=== PATIENT | female | born 1965 | race Two or more races ===

== ENCOUNTER 2023-04-22 15:26 | Emergency (ER) | payer OTHER ==
[~2023-04-22] VITALS: Ht 152.4 cm; Wt 72.6 kg
[2023-04-22] MEDS ORDERED: BENICAR40 MG (15:50)
[2023-04-22 16:39] LABS: HEMATOCRIT 41.4 % (36.0-45.00); HEMOGLOBIN 14.4 g/dL (12.0-15.00); MEAN CELL VOLUME 80.1 fL (80.00-100.00); MEAN CORPUSCULAR HEMOGLOBIN 27.8 pg (27.00-32.0); MEAN CORPUSCULAR HGB CONC 34.7 g/dl (32.0-36.0); PLATELET COUNT 164 K/uL (150-450); RED BLOOD COUNT 5.16 M/uL (4.00-6.00); RED CELL DISTRIBUTION WIDTH 14.1 % (11.5-14.5)
[2023-04-22 16:46] LABS: URINE APPEARANCE Clear; URINE BILIRRUBIN Negative (NEGATIVE); URINE BLOOD Negative; URINE COLOR Yellow; URINE LEUKOCYTE Negative; URINE NITRATE Negative; URINE PROTEIN Negative (NEGATIVE)
[2023-04-22 16:52] LABS: URINE BACTERIA 193.8 uL (0.0-1933); URINE EPITHELIAL CELLS 15.5 uL (0.0-38.8); URINE RBC 2.4 uL (0.0-20.8); URINE WBC 12.3 uL (0.0-23.2)
[2023-04-22 16:55] LABS: URINE GLUCOSE >=1000 MG/DL (NEGATIVE)
[2023-04-22 17:10] LABS: BILIRUBIN TOTAL 0.49 mg/dL (0.3-1.2); CALCIUM 9.3 mg/dL (8.5-10.1); CREATININE SERUM 0.74 mg/dL (0.55-1.02); GFR 80.33; GLOBULINA 4.4 G/DL (2.4-3.5); POTASSIUM 4.22 mEq/L (3.5-5.1); TOTAL PROTEIN 8.4 gm/dL (6.4-8.2)
== END 2023-04-22 19:13 | disposition home or self-care (01) ==
LOC: ER 15:26
DX: I10 Essential (primary) hypertension (principal)